=== PATIENT | female | born 1975 | race Two or more races ===

== ENCOUNTER 2018-07-11 16:23 | Emergency (ER) | payer SELFPAY ==
[~2018-07-11] VITALS: Ht 165.1 cm; Wt 66.0 kg
[2018-07-11] MEDS ORDERED: SODIUM CHLORIDE 0.9% 1,000 ML IV ONE (18:32)
[2018-07-11] MEDS ORDERED: ONDANSETRON HCL 4MG/2ML INJ IV STA (18:32)
[2018-07-11] MEDS ORDERED: MECLIZINE 25MG TABLET PO ONE (18:45)
[2018-07-11 22:21] VITALS: BP 114/80
== END 2018-07-11 22:21 | disposition home or self-care (01) ==
LOC: ER 16:23
DX: R42 Dizziness and giddiness (principal); R11.2 Nausea with vomiting, unspecified; R07.9 Chest pain, unspecified
CPT/HCPCS: 81025; 93005; 96361; 96374; 99283; J2405; J7030; J8597